=== PATIENT | female | born 1980 | race Native Hawaiian/Other Pacific Islander ===

== ENCOUNTER 2021-11-05 18:03 | Observation (INO) | payer BC ==
[~2021-11-05] VITALS: Ht 157.5 cm; Wt 71.8 kg
[~2021-11-05 18:03] MED LIST: ACHYD1T PO; FRS325T PO; Ibuprofen PO; PREN1TAB39 PO
[2021-11-05 18:56] LABS: BASOPHILS # (AUTO) 0.1 10^3/uL (0.0-0.1); BASOPHILS % (AUTO) 1 % (0-10); EOSINOPHILS # (AUTO) 0.7 10^3/uL (0.0-0.3); EOSINOPHILS % (AUTO) 4 % (0-10); HEMATOCRIT 43 % (35-52); HEMOGLOBIN 14.9 g/dL (11.5-16.0); LYMPHOCYTES # (AUTO) 0.8 10^3/uL (1.0-4.0); LYMPHOCYTES % (AUTO) 5 % (12-44); MEAN CORPUSCULAR HEMOGLOBIN 31 pg (25-34); MEAN CORPUSCULAR HGB CONC 35 g/dL (32-36); MEAN CORPUSCULAR VOLUME 90 fL (80-99); MEAN PLATELET VOLUME 11.3 fL (9.0-12.2); MONOCYTES # (AUTO) 0.4 10^3/uL (0.0-1.0); MONOCYTES % (AUTO) 3 % (0-12); NEUTROPHILS # (AUTO) 13.6 10^3/uL (1.8-7.8); NEUTROPHILS % (AUTO) 87 % (42-75); PLATELET COUNT 213 10^3/uL (130-400); WHITE BLOOD COUNT 15.7 10^3/uL (4.3-11.0)
[2021-11-05 19:00] LABS: ALBUMIN 4.3 GM/DL (3.2-4.5); CHLORIDE 103 MMOL/L (98-107); POTASSIUM 3.5 MMOL/L (3.6-5.0); SODIUM 135 MMOL/L (135-145)
[2021-11-05 19:01] LABS: CALCIUM 9.5 MG/DL (8.5-10.1)
[2021-11-05 19:02] LABS: GLUCOSE 158 MG/DL (70-105)
[2021-11-05 19:03] LABS: PROTHROMBIN TIME PATIENT 13.4 SEC (12.2-14.7); TOTAL PROTEIN 8.2 GM/DL (6.4-8.2)
[2021-11-05 19:04] LABS: BILIRUBIN,TOTAL 1.5 MG/DL (0.1-1.0); CARBON DIOXIDE 17 MMOL/L (21-32)
[2021-11-05 19:06] LABS: ALKALINE PHOSPHATASE 78 U/L (40-136); CREATININE SERUM 1.02 MG/DL (0.60-1.30); GFR ESTIMATED 70
[2021-11-05 19:07] LABS: BUN/CREATININE RATIO 15
[2021-11-05 19:09] LABS: ALANINE AMINOTRANSFERASE 34 U/L (0-55); CREATINE KINASE 89 U/L (29-168); MAGNESIUM 1.5 MG/DL (1.6-2.4)
--- NOTE | 2021-11-05 19:10 | Diagnostic Imaging Report ---
INDICATION: Shortness of breath. COMPARISON: None available. FINDINGS: The lungs appear clear without focal infiltrate or consolidation. There are no findings of an effusion. There is no evidence of a pneumothorax. Diaphragms appear flattened suggesting air trapping. Heart size and mediastinal contours appear appropriate. Pulmonary vascularity appears within normal limits. There is no acute or suspicious osseous abnormality demonstrated. IMPRESSION: Flattened diaphragms suggesting air trapping. There is no evidence of pneumonia or edema. Dictated by: Dictated on workstation # [id number]
[2021-11-05 19:14] LABS: EOSINOPHILS % (MANUAL) 4 %; LYMPHOCYTES % (MANUAL) 1 %; MONOCYTES % (MANUAL) 4 %; NEUTROPHILS % (MANUAL) 91 %; RBC MORPH NORMAL
[2021-11-05 19:15] LABS: ERYTHROCYTE SEDIMENTATION RATE 56 MM/HR (0-20)
[2021-11-05] MEDS ORDERED: LACTATED RINGERS 1,000 ML IV ONE ×2 (19:15→20:45)
[2021-11-05 19:17] LABS: CREATINE KINASE MB 0.5 NG/ML (<6.6)
[2021-11-05 19:27] LABS: BILIRUBIN,URINE 1+ (NEGATIVE); CLARITY,URINE CLEAR; COLOR,URINE DARK YELLOW; GLUCOSE, URINE (UA) TRACE (NEGATIVE); KETONES,URINE TRACE (NEGATIVE); LEUKOCYTE ESTERASE ,URINE 1+ (NEGATIVE); NITRITE,URINE POSITIVE (NEGATIVE); PH,URINE 5.5 (5-9); PROTEIN,URINE 2+ (NEGATIVE)
[2021-11-05 19:29] LABS: BACTERIA,URINE LARGE /HPF; SQUAMOUS EPITHELIAL CELL,UR 0-2 /HPF; YEAST,URINE FEW /HPF
[2021-11-05] MEDS ORDERED: NS 100 ML (IVPB) BAG IV ONE (19:30)
[2021-11-05] MEDS ORDERED: IOHEXOL 350 MG/ML 100 ML (OMNIPAQUE 350) VIAL IV ONE (19:30)
[2021-11-05] MEDS ORDERED: cefTRIAXone 1 GM PRE-MIX 50 ML IV STA (19:32)
--- NOTE | 2021-11-05 19:41 | ED Respiratory ---
General Chief Complaint: Cardiac/General Problems Stated Complaint: SOB Source: patient History of Present Illness Date Seen by Provider: November 05, 2021 Time Seen by Provider: 18:45 Initial Comments PT ARRIVES VIA POV FROM HOME STATES SHE HAS BEEN SICK SINCE LAST Tuesday11/01/21 C/O SHORTNESS OF BREATH C/O COUGH C/O SUBJECTIVE FEVER C/O HEADACHE C/O BODY ACHES C/O NAUSEA, NO VOMITING. NO DIARRHEA. C/O DECREASED APPETITE. NO CHEST PAIN, BUT OCCASIONALLY HURTS TO BREATHE NO LOSS OF TASTE/SMELL PT IS NOT COVID VACCINATED OR FLU VACCINATED. DENIES ANY SICK CONTACTS HAS NOT SOUGHT CARE UNTIL TODAY HAS NOT TAKEN ANYTHING FOR SYMPTOMS AT ANY TIME. LMP 10/28/21. NORMAL. NO CONTROL DENIES ANY PAST MEDICAL PROBLEMS, DENIES ANY PRIOR SURGERIES AND DENIES ANY HISTORY OF SMOKING/ALCOHOL/DRUG USE. PCP: LANA Allergies and Home Medications Allergies Coded Allergies: No Known Drug Allergies (Unverified , 12/30/13) Patient Home Medication List Home Medication List Reviewed: Yes Ferrous Sulfate (Feosol Tab) 325 Mg Tab, 325 MG PO DAILY@0700 Prescribed by: MELINA PRATER on 01/01/14 0858 Hydrocodone Bit/Acetaminophen (Lorcet Plus 10/325 Mg) 1 Ea Tab, 1 EA PO Q4H PRN for PAIN Prescribed by: MELINA PRATER on 01/01/14 0858 Vits W-Ca,Fe,Fa(<1MG) () 1 Each Tablet, 1 EACH PO DAILY, (Reported) Entered as Reported by: ROZINA DAWKINS on 02/09/12 1835 [Ibuprofen] 600 MG TAB, 600 MG PO Q6HR PRN for pa Prescribed by: MELINA PRATER on 01/01/14 0858 Review of Systems Review of Systems Constitutional: see HPI, fever, malaise, weakness EENTM: nose congestion, throat pain Respiratory: see HPI, cough, short of breath Cardiovascular: see HPI Gastrointestinal: No diarrhea; loss of appetite, nausea; No vomiting Genitourinary: no symptoms reported Musculoskeletal: see HPI Skin: no symptoms reported Psychiatric/Neurological: See HPI, Headache Hematologic/Lymphatic: No Symptoms Reported Immunological/Allergic: no symptoms reported Past Wjttrdr-Wqpgjk-Uepyij Hx Patient Social History Tobacco Use?: No Smoking Status: Never a Smoker Smokeless Tobacco Frequency: Never a User Use of E-Cig and/or Vaping dev: No Use of E-Cig and/or Vaping Jake: Never a User Substance use?: No Alcohol Use?: No Pt feels they are or have been: No Immunizations Up To Date Tetanus Booster (TDap): Less than 5yrs PED Vaccines UTD: No First/Initial COVID19 Vaccinat: NA Second COVID19 Vaccination Johnny: NA Past Medical History Surgeries: No Respiratory: No Cardiac: No Neurological: No : No Reproductive Disorders: No Genitourinary: No Gastrointestinal: No Musculoskeletal: No Endocrine: No HEENT: No Cancer: No Psychosocial: No Integumentary: No Blood Disorders: No Family Medical History Patient reports no known family medical history. Physical Exam Vital Signs - First Documented 11/05/21 19:28 Temp 37.0 Pulse 140 Resp 20 B/P (MAP) 111/84 (93) Capillary Refill : Height: 5'2.00" Weight: 146lbs. oz. 66.327326oo; BMI Method: General Appearance: WD/WN, no apparent distress, other (SLEEPING SOUNDLY, EASILY AWAKENS. DOES NOT APPEAR TO BE IN ANY DISCOMFORT OR DISTRESS) HEENT: PERRL/EOMI, normal ENT inspection, TMs normal, pharynx normal Neck: normal inspection Respiratory: normal breath sounds, no respiratory distress, no accessory muscle use Cardiovascular: no edema, no JVD, no murmur, tachycardia (120'S-130'S ON ARRIVAL) Gastrointestinal: non tender, soft Extremities: normal range of motion, normal inspection, no pedal edema, no calf tenderness, normal capillary refill Neurologic/Psychiatric: pattern stamper II-XII nml as tested, no motor/sensory deficits, alert, normal mood/affect, oriented x 3 Skin: normal color (DARK SKINNED), warm/dry; No rash Focused Exam Sepsis Stage: Sepsis Possible Source: Pulmonary Lactate Level 11/05/21 19:18: Lactic Acid Level 2.01*H 11/05/21 21:13: Lactic Acid Level 1.01 Time of Focused Exam: 21:15 Respiratory: Normal Breath Sounds, No Accessory Muscle Use, No Respiratory Distress Cardiovascular: Regular Rate, Rhythm, No Murmur Capillary Refill: Less Than 3 Seconds Skin: normal color, warm/dry Lactic Acid Level Laboratory Tests Test 11/05/21 19:18 11/05/21 21:13 Lactic Acid Level 2.01 MMOL/L (0.50-2.00) *H 1.01 MMOL/L (0.50-2.00) Within 3hrs of presentation: Admin fluids, Admin ABX, Blood cultures prior to ABX's, Focus exam, Lactate level Progress/Results/Core Measures Suspected Sepsis SIRS Temperature: Pulse: Respiratory Rate: Laboratory Tests 11/05/21 18:20: White Blood Count 15.7H Blood Pressure / Mean: 11/05/21 19:18: Lactic Acid Level 2.01*H 11/05/21 21:13: Lactic Acid Level 1.01 Laboratory Tests 11/05/21 18:20: Creatinine 1.02, INR Comment 1.0, Platelet Count 213, Total Bilirubin 1.5H Results/Orders Lab Results Laboratory Tests Test 11/05/21 18:20 11/05/21 19:10 11/05/21 19:18 11/05/21 21:13 Range/Units White Blood Count 15.7 H 4.3-11.0 10^3/uL Red Blood Count 4.74 3.80-5.11 10^6/uL Hemoglobin 14.9 11.5-16.0 g/dL Hematocrit 43 35-52 % Mean Corpuscular Volume 90 80-99 fL Mean Corpuscular Hemoglobin 31 25-34 pg Mean Corpuscular Hemoglobin Concent 35 32-36 g/dL Red Cell Distribution Width 11.9 10.0-14.5 % Platelet Count 213 130-400 10^3/uL Mean Platelet Volume 11.3 9.0-12.2 fL Immature Granulocyte % (Auto) 0 % Neutrophils (%) (Auto) 87 H 42-75 % Lymphocytes (%) (Auto) 5 L 12-44 % Monocytes (%) (Auto) 3 0-12 % Eosinophils (%) (Auto) 4 0-10 % Basophils (%) (Auto) 1 0-10 % Neutrophils # (Auto) 13.6 H 1.8-7.8 10^3/uL Lymphocytes # (Auto) 0.8 L 1.0-4.0 10^3/uL Monocytes # (Auto) 0.4 0.0-1.0 10^3/uL Eosinophils # (Auto) 0.7 H 0.0-0.3 10^3/uL Basophils # (Auto) 0.1 0.0-0.1 10^3/uL Immature Granulocyte # (Auto) 0.1 0.0-0.1 10^3/uL Neutrophils % (Manual) 91 % Lymphocytes % (Manual) 1 % Monocytes % (Manual) 4 % Eosinophils % (Manual) 4 % Blood Morphology Comment NORMAL Erythrocyte Sedimentation Rate 56 H 0-20 MM/HR Prothrombin Time 13.4 12.2-14.7 SEC INR Comment 1.0 0.8-1.4 Activated Partial Thromboplast Time 27 24-35 SEC Sodium Level 135 135-145 MMOL/L Potassium Level 3.5 L 3.6-5.0 MMOL/L Chloride Level 103 98-107 MMOL/L Carbon Dioxide Level 17 L 21-32 MMOL/L Anion Gap 15 H 5-14 MMOL/L Blood Urea Nitrogen 15 7-18 MG/DL Creatinine 1.02 0.60-1.30 MG/DL Estimat Glomerular Filtration Rate 70 BUN/Creatinine Ratio 15 Glucose Level 158 H 70-105 MG/DL Calcium Level 9.5 8.5-10.1 MG/DL Corrected Calcium 9.3 8.5-10.1 MG/DL Magnesium Level 1.5 L 1.6-2.4 MG/DL Total Bilirubin 1.5 H 0.1-1.0 MG/DL Aspartate Amino Transf (AST/SGOT) 30 5-34 U/L Alanine Aminotransferase (ALT/SGPT) 34 0-55 U/L Alkaline Phosphatase 78 40-136 U/L Total Creatine Kinase 89 29-168 U/L Creatine Kinase MB 0.5 <6.6 NG/ML Myoglobin 59.0 10.0-92.0 NG/ML Troponin I < 0.028 <0.028 NG/ML C-Reactive Protein High Sensitivity 2.28 H 0.00-0.50 MG/DL B-Type Natriuretic Peptide < 10.0 <100.0 PG/ML Total Protein 8.2 6.4-8.2 GM/DL Albumin 4.3 3.2-4.5 GM/DL Procalcitonin 0.34 H <0.10 NG/ML Serum Test, Qualitative NEGATIVE NEGATIVE Urine Color DARK YELLOW Urine Clarity CLEAR Urine pH 5.5 5-9 Urine Specific [place] 1.025 H 1.016-1.022 Urine Protein 2+ H NEGATIVE Urine Glucose (UA) TRACE H NEGATIVE Urine Ketones TRACE H NEGATIVE Urine Nitrite POSITIVE H NEGATIVE Urine Bilirubin 1+ H NEGATIVE Urine Urobilinogen 4.0 < = 1.0 MG/DL Urine Leukocyte Esterase 1+ H NEGATIVE Urine RBC (Auto) 3+ H NEGATIVE Urine RBC NONE /HPF Urine WBC 2-5 /HPF Urine Squamous Epithelial Cells 0-2 /HPF Urine Renal Epithelial Cells NONE /HPF Urine Crystals NONE /LPF Urine Bacteria LARGE H /HPF Urine Casts NONE /LPF Urine Mucus NEGATIVE /LPF Urine Yeast FEW H /HPF Urine Culture Indicated YES Lactic Acid Level 2.01 *H 1.01 0.50-2.00 MMOL/L Influenza Type A (RT-PCR) Not Detected Not Detecte Influenza Type B (RT-PCR) Not Detected Not Detecte SARS-CoV-2 RNA (RT-PCR) Not Detected Not Detecte My Orders Orders - MAURIZIO QUIROS DO Ed Iv/Invasive Line Start (11/05/21 18:45) Ekg Tracing (11/05/21 18:45) O2 (11/05/21 18:45) Monitor-Rhythm Ecg Trace Only (11/05/21 18:45) Chest 1 View, Ap/Pa Only (11/05/21 18:45) Bnp Jessica (11/05/21 18:45) Cbc With Automated Diff (11/05/21 18:45) Comprehensive Metabolic Panel (11/05/21 18:45) Creatine Kinase (11/05/21 18:45) Creatine Kinase Mb (11/05/21 18:45) Hs C Reactive Protein (11/05/21 18:45) Hcg,Qualitative Serum (11/05/21 18:45) Magnesium (11/05/21 18:45) Protime With Inr (11/05/21 18:45) Partial Thromboplastin Time (11/05/21 18:45) Ua Culture If Indicated (11/05/21 18:45) Erythrocyte Sedimentation Rate (11/05/21 18:45) Myoglobin Serum (11/05/21 18:45) Troponin I Iron (11/05/21 18:45) Procalcitonin (Pct) (11/05/21 18:45) Covid 19 Inhouse Test (11/05/21 18:45) Influenza A And B By Pcr (11/05/21 18:45) Isolation Central Supply Req (11/05/21 18:45) Manual Differential (11/05/21 18:20) Blood Culture (11/05/21 19:08) Urinalysis (11/05/21 19:08) Urine Culture (11/05/21 19:08) Vital Signs Adult Sepsis Patie Q15M (11/05/21 19:08) Remove Rings In Anticipation O (11/05/21 19:08) Lactic Acid Analyzer (11/05/21 19:08) Ed Iv/Invasive Line Start (11/05/21 19:08) Lactated Ringers (Lr 1000 Ml Iv Solution (11/05/21 19:15) Ct Angio Chest W (11/05/21 19:25) Iohexol Injection (Omnipaque 350 Mg/Ml 1 (11/05/21 19:30) Ns (Ivpb) (Sodium Chloride 0.9% Ivpb Bag (11/05/21 19:30) Urine Culture (11/05/21 19:10) Ceftriaxone 1 Gm Pre-Mix (Rocephin 1 Gm (11/05/21 19:32) Ed Iv/Invasive Line Start (11/05/21 20:38) Lactated Ringers (Lr 1000 Ml Iv Solution (11/05/21 20:45) Ed Admission (Communication) (11/05/21 21:12) Azithromycin Injection (Zithromax Inject (11/05/21 21:15) Medications Given in ED Current Medications Medications Dose Ordered Sig/[place] Route Start Time Stop Time Status Last Admin Dose Admin Iohexol 100 ml ONCE ONCE IV 11/05/21 19:30 11/05/21 19:31 DC 11/05/21 20:28 66 ML Lactated Ringer's 1,000 ml @ 0 mls/hr Q0M ONCE IV 11/05/21 19:15 11/05/21 19:16 DC 11/05/21 19:23 1,000 MLS/HR Lactated Ringer's 1,000 ml @ 0 mls/hr Q0M ONCE IV 11/05/21 20:45 11/05/21 20:46 DC 11/05/21 21:57 999 MLS/HR Sodium Chloride 100 ml ONCE ONCE IV 11/05/21 19:30 11/05/21 19:31 DC 11/05/21 20:28 70 ML Vital Signs/I&O 11/05/21 19:28 Temp 37.0 Pulse 140 Resp 20 B/P (MAP) 111/84 (93) Capillary Refill : Progress Note : Progress Note PPE WORN AT ALL TIMES COVID AND FLU TESTING DONE SEPSIS PROTOCOL INITIATED GIVEN IV FLUIDS AND ANTIBIOTICS NO DETERIORATION IN PT'S CONDITION AT ANY TIME NO COUGH NO DYSPNEA NO HYPOXIA NO FEVER Diagnostic Imaging Comments CXR--PER RADIOLOGIST REPORT AT 192 FINDINGS: The lungs appear clear without focal infiltrate or consolidation. There are no findings of an effusion. There is no evidence of a pneumothorax. Diaphragms appear flattened suggesting air trapping. Heart size and mediastinal contours appear appropriate. Pulmonary vascularity appears within normal limits. There is no acute or suspicious osseous abnormality demonstrated. IMPRESSION: Flattened diaphragms suggesting air trapping. There is no evidence of pneumonia or edema. CT CHEST ANGIOGRAM--PER RADIOLOGIST REPORT AT 2108 FINDINGS: This helical CT pulmonary angiogram is diagnostic to the subsegmental level branches of the pulmonary artery and demonstrates no pulmonary emboli. The heart and great vessels are unremarkable. There is no pericardial effusion. There is no axillary, mediastinal or hilar adenopathy. A small amount of groundglass opacities are seen in the lungs, greatest in the right upper lobe. No focal pulmonary mass. No central endobronchial obstructing lesions. No pleural effusion or pneumothorax. Osseous structures appear normal. Hepatic steatosis is noted. There is cholelithiasis without CT evidence of acute cholecystitis. IMPRESSION: 1. No acute pulmonary embolus. 2. Scattered groundglass opacities in the lungs, suspicious for viral infection. 3. Hepatic steatosis. 4. Cholelithiasis. Reviewed: Reviewed by Me Departure Communication (Admissions) 2109--SPOKE WITH DR. SALAMANCA, HOSPITALIST FOR [facility], ACCEPTS PT FOR ADMIT. SHE WILL DO ADMIT ORDERS. Impression Primary Impression: Sepsis Additional Impressions: UTI (urinary tract infection) Pneumonia Disposition: ADMITTED INPATIENT Condition: Stable Admissions Decision to Admit Reason: Admit from ER (General) Decision to Admit/Date: November 05, 2021 Time/Decision to Admit Time: 21:10 Departure-Patient Inst. Referrals: MELINA PRATER MD (PCP/Family) Primary Care Physician MAURIZIO QUIROS DO November 05, 2021 19:41
--- NOTE | 2021-11-05 20:39 | Diagnostic Imaging Report ---
PROCEDURE: CT angiography of the chest with contrast. TECHNIQUE: Multiple contiguous axial images were obtained through the chest after uneventful bolus administration of intravenous contrast. 3D reconstructed CTA MIP acquisitions were also performed. Auto Exposure Controls were utilized during the CT exam to meet ALARA standards for radiation dose reduction. INDICATION: Shortness of breath. Elevated D-dimer. COMPARISON: Chest radiograph performed earlier the same date. FINDINGS: This helical CT pulmonary angiogram is diagnostic to the subsegmental level branches of the pulmonary artery and demonstrates no pulmonary emboli. The heart and great vessels are unremarkable. There is no pericardial effusion. There is no axillary, mediastinal or hilar adenopathy. A small amount of groundglass opacities are seen in the lungs, greatest in the right upper lobe. No focal pulmonary mass. No central endobronchial obstructing lesions. No pleural effusion or pneumothorax. Osseous structures appear normal. Hepatic steatosis is noted. There is cholelithiasis without CT evidence of acute cholecystitis. IMPRESSION: 1. No acute pulmonary embolus. 2. Scattered groundglass opacities in the lungs, suspicious for viral infection. 3. Hepatic steatosis. 4. Cholelithiasis. Dictated by: Dictated on workstation # [id number]
[2021-11-05] MEDS ORDERED: AZITHROMYCIN INJECTION 500 MG in NS (IVPB) 250 ML IV ONE (21:15)
[2021-11-05] MEDS ORDERED: CALCIUM CARBONATE 500 MG (TUMS) TAB.CHEW PO PRN (22:30)
[2021-11-05] MEDS ORDERED: ALPRAZolam 0.25 MG (XANAX) TAB PO PRN (22:30)
[2021-11-05] MEDS ORDERED: KETOROLAC 15 MG/ML VIAL IV PRN (22:30)
[2021-11-05] MEDS ORDERED: LACTULOSE SYRUP 10GM/15ML (ENULOSE) 30ML UDC PO PRN (22:30)
[2021-11-05] MEDS ORDERED: PATIENT MAY USE OWN MEDS, ALL PO SCH (22:30)
[2021-11-05] MEDS ORDERED: ONDANSETRON 4 MG (ZOFRAN) ORAL DISSOLVE TAB PO PRN (22:30)
[2021-11-05] MEDS ORDERED: ENOXAPARIN 40 MG/0.4 ML (LOVENOX) SYR SC SCH (22:30)
[2021-11-05] MEDS ORDERED: diphenhydrAMINE 50 MG/ML INJ (BENADRYL) IVP PRN (22:30)
[2021-11-05] MEDS ORDERED: morphine INJ 4 MG/ML 1 ML (VIAL/SYRINGE) IV PRN (22:30)
[2021-11-05] MEDS ORDERED: guaiFENesin/CODEINE (ROBITUSSIN AC) 10ML UDC PO PRN (22:30)
[2021-11-05] MEDS ORDERED: ANTACID SUSP 30 ML UDC (MYLANTA) PO PRN (22:30)
[2021-11-05] MEDS ORDERED: ONDANSETRON 4 MG/2 ML (SDV) Z0FRAN IV PRN (22:30)
[2021-11-05] MEDS ORDERED: diphenhydrAMINE 25 MG TAB (BENADRYL) PO PRN (22:30)
[2021-11-05] MEDS ORDERED: ACETAMINOPHEN 325 MG TABLET PO PRN (22:30)
[2021-11-05] MEDS ORDERED: MILK OF MAGNESIA 400 MG/5 ML 30 ML UDC PO PRN (22:30)
[2021-11-05] MEDS ORDERED: BISACODYL 10 MG SUPP (DULCOLAX) PR PRN (22:30)
[2021-11-05] MEDS ORDERED: MELATONIN 3 MG TABLET PO PRN (22:30)
[2021-11-05] MEDS ORDERED: polyethylene glycoL POWDER 17 GM (MIRALAX) PACK PO PRN (22:30)
[2021-11-05 22:37] VITALS: BP 107/75
[2021-11-05] MEDS: NS IV 1000 ML 1,000 ML IV SCH (23:38)
[2021-11-06 04:52] LABS: BASOPHILS # (AUTO) 0.1 10^3/uL (0.0-0.1); BASOPHILS % (AUTO) 1 % (0-10); EOSINOPHILS # (AUTO) 0.4 10^3/uL (0.0-0.3); EOSINOPHILS % (AUTO) 4 % (0-10); HEMATOCRIT 38 % (35-52); HEMOGLOBIN 12.8 g/dL (11.5-16.0); LYMPHOCYTES # (AUTO) 1.2 10^3/uL (1.0-4.0); LYMPHOCYTES % (AUTO) 12 % (12-44); MEAN CORPUSCULAR HEMOGLOBIN 31 pg (25-34); MEAN CORPUSCULAR HGB CONC 34 g/dL (32-36); MEAN CORPUSCULAR VOLUME 93 fL (80-99); MEAN PLATELET VOLUME 10.9 fL (9.0-12.2); MONOCYTES # (AUTO) 0.6 10^3/uL (0.0-1.0); MONOCYTES % (AUTO) 6 % (0-12); NEUTROPHILS # (AUTO) 7.9 10^3/uL (1.8-7.8); NEUTROPHILS % (AUTO) 77 % (42-75); PLATELET COUNT 177 10^3/uL (130-400); WHITE BLOOD COUNT 10.2 10^3/uL (4.3-11.0)
[2021-11-06 05:07] LABS: ALBUMIN 3.5 GM/DL (3.2-4.5)
[2021-11-06 05:09] LABS: CALCIUM 8.6 MG/DL (8.5-10.1)
[2021-11-06 05:12] LABS: BILIRUBIN,TOTAL 0.8 MG/DL (0.1-1.0)
[2021-11-06 05:14] LABS: CREATININE SERUM 0.82 MG/DL (0.60-1.30)
--- NOTE | 2021-11-06 05:55 | History & Physical-Hospitalist ---
History of Present Illness Source: patient Date Seen 11/06/21 Time Seen by a Provider: 10:30 Attending Physician Cleopatra Hernandez MD PCP Admitting Physician: Oksana Rivers DO Attending Physician: Oksana Rivers DO Referring Physician Date of Admission November 05, 2021 at 21:14 Home Medications & Allergies Home Medications Reviewed patient Home Medication Reconciliation performed by pharmacy medication reconciliations radioisotope technician and/or nursing. Patients Allergies have been reviewed. Allergies Allergies Coded Allergies No Known Drug Allergies (Unverified12/30/13) Past Nfahgoe-Epgzan-Cndenu Hx Patient Social History Tobacco Use?: No Smoking Status: Never a Smoker Smokeless Tobacco Frequency: Never a User Use of E-Cig and/or Vaping dev: No Use of E-Cig and/or Vaping Jake: Never a User Substance use?: No Alcohol Use?: No Pt feels they are or have been: No Immunizations Up To Date First/Initial COVID19 Vaccinat: NA Second COVID19 Vaccination Johnny: NA Tetanus Booster (TDap): Unknown Hepatitis A: No Hepatitis B: No PED Vaccines UTD: No Current Status status: No status: No Advance Directives: No Communicates: Verbally Primary Language: Yakut Preferred Spoken Language: Yakut Is interpretation needed?: No Implanted or Applied Medical D: None Past Medical History Blood Disorders: No Family Medical History Patient reports no known family medical history. Physical Exam Physical Exam Vital Signs Vital Signs - First Documented 11/05/21 11/05/21 19:28 22:25 Temp 37.0 Pulse 140 Resp 20 B/P (MAP) 111/84 (93) Pulse Ox 96 O2 Delivery Room Air Capillary Refill : Less Than 3 Seconds Height, Weight, BMI Height: 5'2.00" Weight: 146lbs. oz. 66.840331oi; 28.94 BMI Method: Results Results/Procedures Labs Laboratory Tests 11/05/21 18:20 11/06/21 04:45 Patient resulted labs reviewed. Clinical Quality Measures AMI/AHF: ASA po Prior to arrival: OKSANA Burgos DO November 06, 2021 05:55
[2021-11-06 07:30] VITALS: BP 113/74
[2021-11-06 07:38] VITALS: BP 113/74
[2021-11-06] MEDS: NS IV 1000 ML 1,000 ML IV SCH (07:46)
[2021-11-06] MEDS ORDERED: RT-ALBUTEROL SULF 2.5 MG/3 ML PRE-MIX VIAL INH SCH (08:00)
[2021-11-06] MEDS ORDERED: SENNOSIDES 8.6 MG (SENOKOT) TAB PO SCH (09:00)
[2021-11-06] MEDS ORDERED: DOCUSATE SODIUM 100 MG (COLACE) CAP PO SCH (09:00)
[2021-11-06] MEDS ORDERED: CEFD300C3 PO (09:32)
--- NOTE | 2021-11-06 09:33 | Short Stay Summary-Hospitalist ---
History of Present Illness HPI/Chief Complaint CC: Sepsis HPI: This is a 41 yr old female clinic pt of [facility]. She presented to the ER with fever and weakness. She was found to have elevated lactic acid and findings consistent with UTI. She was placed on IV fluid, empiric antibiotics. Chest x- ray and CT scan showed viral pneumonitis. No hypoxia and Covid was negative along with influenza. She feels very good now and will go home on Omnicef antibiotic. Source: patient Exam Limitations: no limitations Date Seen 11/06/21 Time Seen by a Provider: 10:30 Attending Physician Cleopatra Hernandez MD PCP Admitting Physician: Oksana Rivers DO Attending Physician: Oksana Rivers DO Referring Physician Date of Admission November 05, 2021 at 21:14 Home Medications & Allergies Home Medications Reviewed patient Home Medication Reconciliation performed by pharmacy medication reconciliations costume technician and/or nursing. Patients Allergies have been reviewed. Allergies Allergies Coded Allergies No Known Drug Allergies (Unverified12/30/13) Past Lnivxyq-Hcdcob-Sphdkb Hx Patient Social History Marrital Status: single Employed/Student: unemployed Tobacco Use?: No Smoking Status: Never a Smoker Smokeless Tobacco Frequency: Never a User Use of E-Cig and/or Vaping dev: No Use of E-Cig and/or Vaping Jake: Never a User Substance use?: No Alcohol Use?: No Pt feels they are or have been: No Immunizations Up To Date First/Initial COVID19 Vaccinat: NA Second COVID19 Vaccination Johnny: NA Tetanus Booster (TDap): Unknown Hepatitis A: No Hepatitis B: No PED Vaccines UTD: No Current Status status: No status: No Advance Directives: No Communicates: Verbally Primary Language: Tristanian Preferred Spoken Language: Tristanian Is interpretation needed?: No Implanted or Applied Medical D: None Past Medical History Blood Disorders: No Family Medical History Patient reports no known family medical history. Review of Systems Constitutional: see HPI, dizziness, malaise, weakness Gastrointestinal: nausea Physical Exam Physical Exam Vital Signs Vital Signs - First Documented 11/05/21 11/05/21 19:28 22:25 Temp 37.0 Pulse 140 Resp 20 B/P (MAP) 111/84 (93) Pulse Ox 96 O2 Delivery Room Air Capillary Refill : Less Than 3 Seconds Height, Weight, BMI Height: 5'2.00" Weight: 146lbs. oz. 66.516616ro; 28.94 BMI Method: General Appearance: No Apparent Distress, WD/WN Eyes: Bilateral Eye Normal Inspection, Bilateral Eye PERRL HEENT: PERRL/EOMI, TMs Normal, Normal ENT Inspection, Pharynx Normal Neck: Full Range of Motion, Normal Inspection, Non Tender, Supple, Carotid Bruit Respiratory: Normal Breath Sounds, No Accessory Muscle Use, No Respiratory Distress Cardiovascular: Regular Rate, Rhythm, No Murmur Gastrointestinal: Normal Bowel Sounds, No Organomegaly, No Pulsatile Mass, Non Tender, Soft Back: Normal Inspection, No CVA Tenderness, No Vertebral Tenderness Extremity: Normal Capillary Refill, Normal Inspection, Normal Range of Motion, Non Tender, No Calf Tenderness, No Pedal Edema Neurologic/Psychiatric: Alert, Oriented x3, No Motor/Sensory Deficits, Normal Mood/Affect Skin: Normal Color, Warm/Dry Lymphatic: No Adenopathy Results Results/Procedures Labs Laboratory Tests 11/05/21 18:20 11/06/21 04:45 Patient resulted labs reviewed. Short Stay Diagnosis Discharge Diagnosis-Short Stay Admission Diagnosis Assessment: Sepsis UTI Dehydration Final Discharge Diagnosis Assessment: Sepsis UTI Dehydration Conclusion Plan DC home Clinical Quality Measures AMI/AHF: ASA po Prior to arrival: OKSANA Burgos DO November 06, 2021 09:33
[2021-11-06] MEDS ORDERED: AZITHROMYCIN INJECTION 250 MG in NS (IVPB) 250 ML IV SCH (21:00)
[2021-11-06] MEDS ORDERED: cefTRIAXone 1 GM PRE-MIX 50 ML IV SCH (21:00)
[2021-11-06] MEDS ORDERED: AZITHROMYCIN 250 MG TAB (ZITHROMAX) PO SCH (21:00)
== END 2021-11-06 11:30 | disposition home or self-care (01) ==
LOC: EDUNIT# 18:03 → ER 18:11 → INTOOBSV 21:14 → CSD 21:14
PROVIDERS: ADMIT Internal Medicine; ATTEND Internal Medicine
DX: A41.9 Sepsis, unspecified organism (principal); N39.0 Urinary tract infection, site not specified; E86.0 Dehydration; J18.9 Pneumonia, unspecified organism
CPT/HCPCS: 71045; 71275; 80053 ×2; 81000; 82550; 82553; 83605; 83735; 83874; 83880; 84145; 84484; 84703; 85007; 85025; 85027; 85610; 85652; 85730; 86141; 87040; 87077; 87088; 87186; 87636; 93005; 93041; 94640; 96372; 99284; G0378; 36415; 96361

== ENCOUNTER 2022-10-26 05:47 | Emergency (ER) | payer BC ==
[~2022-10-26] VITALS: Ht 155 cm; Wt 75.7 kg
[~2022-10-26 05:47] MED LIST changes: +CEFD300C3 PO
--- NOTE | 2022-10-26 06:17 | ED Respiratory ---
General Chief Complaint: Cough/Cold/Flu Symptoms Stated Complaint: SOB Nursing Triage Note: PT AMB TO RM 7 W C/O COUGH SX YESTERDAY AND SOA SX 0100 THIS AM. PT A&OX4. Source: patient, family (daughter) Exam Limitations: language barrier History of Present Illness Date Seen by Provider: October 26, 2022 Time Seen by Provider: 06:05 Initial Comments Patient is a 42-year-old female who presents to the emergency room with a chief complaint of feeling short of breath, coughing onset in the last couple of days. She is a , her daughter acts as medical records field technician, the patient does speak some Indonesian. She did see [facility] urgent care yesterday and was prescribed some omeprazole. Daughter states that her mother symptoms are worse a couple of hours after eating. Cough is a little productive of clear sputum. Patient states her chest discomfort feels like a "squeezing". It does not radiate. She is not nauseous. She does not break out into a sweat. She has never had breathing issues like this before. She is not and has never been a smoker. No one smokes in the home. She denies fevers, chills, runny nose congestion. No vomiting or diarrhea. No urinary complaints. No leg swelling, recent prolonged immobility or travel. She does not take any medications on a daily basis other than the omeprazole she started yesterday. She denies pain. Timing/Duration: getting worse, other (1-2 days) Severity: moderate Prior Episodes/Possible Cause: no prior episodes Modifying Factors: Improves With Other (eating seems to make it worse) Associated Symptoms: cough, shortness of breath, wheezing Allergies and Home Medications Allergies Coded Allergies: No Known Drug Allergies (Unverified , 12/30/13) Patient Home Medication List Home Medication List Reviewed: Yes Cefdinir (Cefdinir) 300 Mg Capsule, 300 MG PO BID Prescribed by: YENNY SALAMANCA on 11/06/21 [id number] Review of Systems Review of Systems Constitutional: see HPI EENTM: no symptoms reported Respiratory: cough, short of breath, wheezing Cardiovascular: chest pain (""squeezing") Gastrointestinal: no symptoms reported Genitourinary: no symptoms reported Musculoskeletal: no symptoms reported Psychiatric/Neurological: No Symptoms Reported Past Hktnmpe-Rgosfb-Rfdgba Hx Patient Social History Tobacco Use?: No Use of E-Cig and/or Vaping dev: No Substance use?: No Alcohol Use?: No Immunizations Up To Date Tetanus Booster (TDap): Less than 5yrs PED Vaccines UTD: No First/Initial COVID19 Vaccinat: NONE Second COVID19 Vaccination Johnny: NONE Third COVID19 Vaccination Date: NONE COVID19 Vaccine Roll Hauler: NONE Past Medical History Surgery/Hospitalization HX: none Surgeries: No Respiratory: No Cardiac: No Neurological: No Reproductive Disorders: No Genitourinary: No Gastrointestinal: No Musculoskeletal: No Endocrine: No HEENT: No Cancer: No Psychosocial: No Integumentary: No Blood Disorders: No Family Medical History Patient reports no known family medical history. Physical Exam Vital Signs - First Documented 10/26/22 05:54 Temp 37.0 Pulse 103 Resp 22 B/P (MAP) 137/95 (109) Pulse Ox 94 O2 Delivery Room Air Capillary Refill : Less Than 3 Seconds Height: 5'2.00" Weight: 146lbs. oz. [id number]; 31.00 BMI Method: Progress/Results/Core Measures Suspected Sepsis SIRS Temperature: Pulse: 103 Respiratory Rate: 22 Laboratory Tests 10/26/22 06:39: White Blood Count 14.0H Blood Pressure 137 /95 Mean: 109 Laboratory Tests 10/26/22 06:39: Creatinine 0.81, Platelet Count 218 Results/Orders Lab Results Laboratory Tests Test 10/26/22 06:39 Range/Units White Blood Count 14.0 H 4.3-11.0 10^3/uL Red Blood Count 4.61 3.80-5.11 10^6/uL Hemoglobin 14.4 11.5-16.0 g/dL Hematocrit 41 35-52 % Mean Corpuscular Volume 89 80-99 fL Mean Corpuscular Hemoglobin 31 25-34 pg Mean Corpuscular Hemoglobin Concent 35 32-36 g/dL Red Cell Distribution Width 12.0 10.0-14.5 % Platelet Count 218 130-400 10^3/uL Mean Platelet Volume 11.4 9.0-12.2 fL Immature Granulocyte % (Auto) 0 % Neutrophils (%) (Auto) 70 42-75 % Lymphocytes (%) (Auto) 17 12-44 % Monocytes (%) (Auto) 6 0-12 % Eosinophils (%) (Auto) 6 0-10 % Basophils (%) (Auto) 1 0-10 % Neutrophils # (Auto) 9.8 H 1.8-7.8 10^3/uL Lymphocytes # (Auto) 2.4 1.0-4.0 10^3/uL Monocytes # (Auto) 0.8 0.0-1.0 10^3/uL Eosinophils # (Auto) 0.9 H 0.0-0.3 10^3/uL Basophils # (Auto) 0.1 0.0-0.1 10^3/uL Immature Granulocyte # (Auto) 0.1 0.0-0.1 10^3/uL Sodium Level 137 135-145 MMOL/L Potassium Level 3.7 3.6-5.0 MMOL/L Chloride Level 108 H 98-107 MMOL/L Carbon Dioxide Level 19 L 21-32 MMOL/L Anion Gap 10 5-14 MMOL/L Blood Urea Nitrogen 15 7-18 MG/DL Creatinine 0.81 0.60-1.30 MG/DL Estimat Glomerular Filtration Rate 92 BUN/Creatinine Ratio 19 Glucose Level 132 H 70-105 MG/DL Calcium Level 9.0 8.5-10.1 MG/DL Troponin I < 0.028 <0.028 NG/ML My Orders Orders - KEVON LOJA MD Ed Iv/Invasive Line Start (10/26/22 06:17) Cbc With Automated Diff (10/26/22 06:17) Basic Metabolic Panel (10/26/22 06:17) Troponin I Jessica (10/26/22 06:17) Ekg Tracing (10/26/22 06:17) Chest 1 View, Ap/Pa Only (10/26/22 06:17) Urine Bedside (10/26/22 06:17) Albuterol/Ipra Inhalation Soln (Duoneb I (10/26/22 06:30) Svn Small Volume Nebulizer (10/26/22 06:17) Aspirin Chewable Tablet (Baby Aspirin Ch (10/26/22 06:30) Albuterol Pre-Mix Nebs (Rt) (Proventil (10/26/22 07:45) Prednisone Tablet (Deltasone Tablet) (10/26/22 07:45) Svn Small Volume Nebulizer (10/26/22 07:36) Medications Given in ED Current Medications Medications Dose Ordered Sig/[place] Route Start Time Stop Time Status Last Admin Dose Admin Albuterol Sulfate 2.5 mg ONCE ONCE INH 10/26/22 07:45 10/26/22 07:46 10/26/22 07:41 2.5 MG Albuterol/ Ipratropium 3 ml ONCE ONCE INH 10/26/22 06:30 10/26/22 06:31 DC 10/26/22 06:23 3 ML Aspirin 324 mg ONCE ONCE PO 10/26/22 06:30 10/26/22 06:31 DC 10/26/22 06:23 324 MG Prednisone 50 mg ONCE ONCE PO 10/26/22 07:45 10/26/22 07:46 10/26/22 07:41 50 MG Vital Signs/I&O 10/26/22 05:54 Temp 37.0 Pulse 103 Resp 22 B/P (MAP) 137/95 (109) Pulse Ox 94 O2 Delivery Room Air Capillary Refill : Less Than 3 Seconds Blood Pressure Mean: 109 Progress Note : Time: 07:38 Progress Note Patient reevaluated at this time, feeling much better. Oxygen saturations up to 97%. She still has scattered expiratory wheezes throughout. We will follow-up the DuoNeb with an albuterol SVN. Patient seen and evaluated by me. Evaluation today includes physical exam, CBC, basic metabolic panel, troponin, EKG, single view chest x-ray and urine test. Patient's exam is pertinent for well-developed well-nourished female in no acute distress. Room air oxygen 94%. No increased work of breathing or respiratory distress is noted. Lungs are diminished throughout with very faint expiratory wheezes. Heart is regular. Abdomen is soft. Lower extremities show no signs of edema, calf tenderness. Differential diagnosis based on history and physical exam, pneumonia, acute bronchitis, reactive airway disease, pulmonary embolism, atypical ACS. Labs and imaging independently reviewed by me. CBC shows a white count of 14,000 without left shift. Hemoglobin is 14.4. Basic metabolic panel is unremarkable except for CO2 of 19 glucose of 132. Troponin is undetectable. Bedside urine test is negative. Single view chest x-ray shows no signs of infiltrate, effusion. Normal mediastinal structures. EKG shows normal sinus rhythm at 96 bpm without ectopy. Normal intervals, no ST segment change. Patient is treated in the emergency department with 324 mg of baby aspirin as well as a DuoNeb initially. She got some relief from the initial breathing treatment, will repeat albuterol. Anticipate sending her home on prednisone as well as with an albuterol MDI. Return precautions provided in both verbal and written format. Diagnostic Imaging Diagonstic Imaging: Xray Plain Films/CT/US/NM/MRI: chest Comments cxr - interpreted by me. No infiltrate, no effusion, normal mediastinal structures Departure Impression Primary Impression: Acute bronchitis Qualified Codes: J20.9 - Acute bronchitis, unspecified Disposition: HOME, SELF-CARE Condition: Improved Departure-Patient Inst. Decision time for Depature: 07:46 Referrals: [facility] [place],LOCAL PHYSICIAN (PCP) Primary Care Physician Patient Instructions: Acute Bronchitis, Adult (DC) Add. Discharge Instructions: Drink plenty of fluids to stay well hydrated. Continue the new medication you were prescribed yesterday - the Omeprazole, daily. You will need to take Prednisone for a total of 5 days. I have sent a prescription for this to your pharmacy. Next dose tomorrow. A prescription for an inhaler has also been sent. Take 2 puffs off the inhaler every 6 hours for shortness of breath for the next week (5-7 days). If you get a fever, worsening cough or shortness of breath, please return to the Emergency Department for re-evaluation. You can take over the counter Robitussin for cough. Please follow packaging instructions. Scripts Albuterol Sulfate (Ventolin Hfa) 90 Mcg Hfa.aer.ad 2 PUFF INH Q6H, #1 UNIT 1 PUFF = 90 MCG Prov: KEVON LOJA MD 10/26/22 Prednisone (Prednisone) 50 Mg Tab 50 MG PO DAILY for 4 Days, #4 TAB Prov: KEVON LOJA MD 10/26/22 KEVON LOJA MD October 26, 2022 06:17
[2022-10-26] MEDS ORDERED: ASPIRIN 81 MG CHEW (CHILDREN'S ASA) PO ONE (06:30)
[2022-10-26] MEDS ORDERED: RT-ALBUTEROL/IPRATROPIUM 3 ML (DUONEB) VIAL INH ONE (06:30)
[2022-10-26 06:43] LABS: BASOPHILS # (AUTO) 0.1 10^3/uL (0.0-0.1); BASOPHILS % (AUTO) 1 % (0-10); EOSINOPHILS # (AUTO) 0.9 10^3/uL (0.0-0.3); EOSINOPHILS % (AUTO) 6 % (0-10); HEMATOCRIT 41 % (35-52); HEMOGLOBIN 14.4 g/dL (11.5-16.0); LYMPHOCYTES # (AUTO) 2.4 10^3/uL (1.0-4.0); LYMPHOCYTES % (AUTO) 17 % (12-44); MEAN CORPUSCULAR HEMOGLOBIN 31 pg (25-34); MEAN CORPUSCULAR HGB CONC 35 g/dL (32-36); MEAN CORPUSCULAR VOLUME 89 fL (80-99); MEAN PLATELET VOLUME 11.4 fL (9.0-12.2); MONOCYTES # (AUTO) 0.8 10^3/uL (0.0-1.0); MONOCYTES % (AUTO) 6 % (0-12); NEUTROPHILS # (AUTO) 9.8 10^3/uL (1.8-7.8); NEUTROPHILS % (AUTO) 70 % (42-75); PLATELET COUNT 218 10^3/uL (130-400)
[2022-10-26 06:55] LABS: CHLORIDE 108 MMOL/L (98-107); POTASSIUM 3.7 MMOL/L (3.6-5.0); SODIUM 137 MMOL/L (135-145)
[2022-10-26 06:57] LABS: GLUCOSE 132 MG/DL (70-105)
[2022-10-26 06:59] LABS: CARBON DIOXIDE 19 MMOL/L (21-32)
[2022-10-26 07:01] LABS: CREATININE SERUM 0.81 MG/DL (0.60-1.30); GFR ESTIMATED 92
[2022-10-26 07:02] LABS: BUN/CREATININE RATIO 19
--- NOTE | 2022-10-26 07:35 | Diagnostic Imaging Report ---
Indication: 42-year-old female with shortness of breath Comparisons: 10/25/2022 FINDINGS: Single view chest shows normal heart, pleura and diaphragms. There is prominent central lung markings with some peribronchial cuffing. Some minimal basilar atelectatic infiltrates are seen. There is some mild bronchiectatic changes extending into both lower lobes right greater than left. Soft tissues and bony thorax are unremarkable. IMPRESSION: 1. Central reactive airway changes such as bronchitis with some perihilar and bibasilar atelectatic infiltrates but some minimal bronchiectatic changes extending the right lower lobe noted. 2. Tortuous thoracic aorta. Dictated by: Dictated on workstation # [id number]
[2022-10-26] MEDS ORDERED: predniSONE 20 MG TAB PO ONE (07:45)
[2022-10-26] MEDS ORDERED: RT-ALBUTEROL SULF 2.5 MG/3 ML PRE-MIX VIAL INH ONE (07:45)
[2022-10-26] MEDS ORDERED: PRD50T PO (07:50)
[2022-10-26] MEDS ORDERED: ALBU8.5H6 INH (07:50)
[2022-10-26 08:01] VITALS: BP 129/79
== END 2022-10-26 08:01 | disposition home or self-care (01) ==
LOC: EDUNIT# 05:47 → ER 05:52
DX: J20.9 Acute bronchitis, unspecified (principal); Z28.310 Unvaccinated for COVID-19
CPT/HCPCS: 36415; 71045; 80048; 84484; 84703; 85025; 93005